=== PATIENT | male | born 1970 | race Caucasian/White ===

== ENCOUNTER 2018-10-30 06:57 | Day surgery (SDC) | payer BC ==
[2018-10-30] MEDS ORDERED: fentaNYL 100 MCG/2 ML SDV ONE (07:33)
[2018-10-30] MEDS ORDERED: Propofol 200 MG/20 ML SDV ONE ×2 (07:33→08:17)
[2018-10-30] MEDS ORDERED: Midazolam 1 MG/ML 2 ML SDV ONE (07:33)
[2018-10-30] MEDS ORDERED: Lactated Ringers 1,000 ML IV SCH (07:45)
--- NOTE | 2018-10-30 15:15 | PROC ---
DATE OF PROCEDURE: 10/30/2018 SURGEON: Rk Pyle MD PROCEDURE: Colonoscopy. INDICATIONS: Pete is a 48-year-old male who comes in for a colonoscopy because he has been having pain in the abdomen, the left side lower abdomen area. There has been no change in bowel habits. The risks and benefits were explained to the patient and was taken to the OR. PROCEDURE IN DETAIL: Anesthesia was given by the nurse histologic aide. During the procedure, we used 2 mg of Versed, 100 mcg of fentanyl, and 250 mg of propofol. The Olympus 180L scope was used. The rectum was examined with a gloved finger, then the tube was placed in the rectum and advanced under direct vision. We did get to the cecum without difficulty. There was a borderline prep throughout the colon, mostly thick liquid material. Picture was taken at the cecum, which was unremarkable. Upon slow retraction of the tube, noted no lesions, ulceration, no abnormality throughout the entire colon. The tube was removed. The patient tolerated the procedure well. PREOPERATIVE DIAGNOSIS: Abdominal pain. POSTOPERATIVE DIAGNOSIS: Normal colon from cecum to rectum with a borderline prep. This procedure does not explain his abdominal pain, but there is no obvious pathology noted in the colon. Rk Pyle MD /[id number]
== END 2018-10-30 10:00 | disposition home or self-care (01) ==
LOC: JP.SDS 06:57
PROVIDERS: ATTEND Internal Medicine
DX: R10.32 Left lower quadrant pain (principal); Z03.89 Encounter for observation for other suspected diseases and conditions ruled out; F17.200 Nicotine dependence, unspecified, uncomplicated; I10 Essential (primary) hypertension; Z88.8 Allergy status to other drugs, medicaments and biological substances
CPT/HCPCS: 45378; J2250; J2704; J3010; J7120